=== PATIENT | male | born 1985 | race Two or more races ===

== ENCOUNTER 2017-04-28 09:28 | Emergency (ER) | payer SELFPAY ==
[2017-04-28 09:32] VITALS: BP 143/90; BMI 31.8
--- NOTE | 2017-04-28 10:19 | DR.GENAD ---
HPI - PCP Primary Care Physician: NFD - Complaint/Symptoms Chief Complaint Doctors Comments: Patient admits to RUQ pain since this morning associated with nausea. He admits to vomiting earlier today. Denies fever Chief Complaint:: SUDDEN ON SET OF SEVERE RIGHT SIDE OF ABD. PAIN - Source History Provided: Patient - Mode of Arrival Mode of Arrival: Ambulatory - Timing Onset of Chief Complaint: 04/28/17 PMH - PMH Past Medical History: No Past Surgical History: Yes Past Surgical History Comment: WISDOM TEETH - Family History History of Family Medical Conditions: No - Social History Does patient currently use any type of tobacco product: No Have you used tobacco products in the last 12 months: No Type of Tobacco Use: None Does any household member use tobacco: No Alcohol Use: None Do you use any recreational Drugs:: No Lives With: Family Lives Where: Home - infectious screening In the last 2 months have you had wt loss of >10#?: NO Have you had fever, night sweats or hemotysis?: No Have you traveled outside the country in the last 6 months?: No Isolation: Standard ROS - Review of Systems Constitutional: negative: Diaphoresis Eyes: No Symptoms Reported ENTM: No Symptoms Reported Respiratoy: No Symptoms Reported Cardiovascular: No Symptoms Reported Gastrointestinal/Abdominal: No Symptoms Reported Genitourinary: No Symptoms Reported Neurological: No Symptoms Reported, Emotional Problems Musculoskeletal: No Symptoms Reported Integumentary: No Symptoms Reported Hematologic/Lymphatic: No Symptoms Reported Endocrine: No Symptoms Reported Psychiatric: No Symptoms Reported All Other Systems: Reviewed and Negative PE - Vital Signs Vitals: Temperature 97.9 F Pulse Rate 110 Respiratory Rate 20 Blood Pressure 143/90 O2 Sat by Pulse Oximetry 97 - General General Appearance: Alert - Head Head Exam: Normal Inspection, Atraumatic - Eyes Eye exam: Normal Appearance - ENT ENT Exam: Normal Exam External Ear Exam: Normal External Inspection TM/Canal Exam: Bilateral Normal Nose Exam: Normal Nose Exam Mouth Exam: Normal Inspection Throat Exam: Normal Inspection - Neck Neck Exam: Normal Inspection, Full ROM - Chest Chest Inspection: Normal Inspection, Symmetric Chest Wall Rise - Respiratory Respiratory Exam: Normal Lung Sounds Bilat Respiratory Exam: Bilateral Clear to Auscultation - Cardiovascular Cardiovascular Exam: Regular Rate, Normal Rhythm - Abdominal Exam Abdominal Exam: Normal Inspection, Distention, Tenderness, Guarding Abdominal Tenderness: RUQ, RLQ - Extremities Extremities Exam: Normal Inspection, Full ROM - Back Back Exam: Normal Inspection, Full ROM - Neurologic Neurological Exam: Alert, Oriented X3, CN II-XII Intact - Psychiatric Psychiatric Exam: Normal Affect - Skin Skin Exam: Warm, Dry Course - Reevaluation 1st: Improved ROR - Labs Reviewed Result Diagrams: 04/28/17 10:25 04/28/17 10:25 Laboratory: WBC 11.0 X10^3/uL (3.6-10.0) H 04/28/17 10:25 RBC 5.60 X10^6/uL (4.7-6.0) 04/28/17 10:25 Hgb 16.4 g/dL (13.5-18.0) 04/28/17 10:25 Hct 46.2 % (42.0-54.0) 04/28/17 10:25 MCV 82.6 fL (80.0-100.0) 04/28/17 10:25 MCH 29.3 pg (27.0-34.0) 04/28/17 10:25 MCHC 35.5 g/dL (33.0-35.0) H 04/28/17 10:25 RDW 13.0 % (11.6-16.5) 04/28/17 10:25 Plt Count 221 X10^3/uL (150.0-450.0) 04/28/17 10:25 MPV 8.9 fL (7.4-11.0) 04/28/17 10:25 Neut % 72.4 % (42.0-75.0) 04/28/17 10:25 Lymph % 17.1 % (21.0-51.0) L 04/28/17 10:25 [place] % 5.9 % (0.0-13.0) 04/28/17 10:25 Eos % 4.1 % (0.9-2.9) H 04/28/17 10:25 Baso % 0.5 % (0.2-1.0) 04/28/17 10:25 Neut # 8.0 x10^3/uL (2.2-4.8) H 04/28/17 10:25 Lymph # 1.9 X10^3/uL (1.3-2.9) 04/28/17 10:25 [place] # 0.6 x10^3/uL (0.3-0.8) 04/28/17 10:25 Eos # 0.4 x10^3/uL (0.0-0.2) H 04/28/17 10:25 Baso # 0.1 X10^3/uL (0.0-0.1) 04/28/17 10:25 Absolute Nucleated RBC 0.1 /100WBC 04/28/17 10:25 Sodium 142 mmol/L (136-145) 04/28/17 10:25 Corrected Sodium 143 mmol/L (136-145) 04/28/17 10:25 Potassium 3.4 mmol/L (3.5-5.1) L 04/28/17 10:25 Chloride 107 mmol/L (98-107) 04/28/17 10:25 Carbon Dioxide 24.7 mmol/L (21-32) 04/28/17 10:25 BUN 13 mg/dL (7-18) 04/28/17 10:25 Creatinine 0.93 mg/dL (0.70-1.30) 04/28/17 10:25 Est GFR (MDRD) Af Amer > 60 (>60) 04/28/17 10:25 Est GFR (MDRD) Non-Af > 60 (>60) 04/28/17 10:25 Glucose 136 mg/dL (65-99) H 04/28/17 10:25 Calcium 8.8 mg/dL (8.5-10.1) 04/28/17 10:25 Corrected Calcium TNP 04/28/17 10:25 Total Bilirubin 0.60 mg/dL (0.2-1.0) 04/28/17 10:25 AST 31 Units/L (15-37) 04/28/17 10:25 ALT 58 Units/L (12-78) 04/28/17 10:25 Alkaline Phosphatase 93 Units/L (46-116) 04/28/17 10:25 C-Reactive Protein 3.90 mg/L (0-3.0) H 04/28/17 10:25 Total Protein 7.4 g/dL (6.4-8.2) 04/28/17 10:25 Albumin 4.0 g/dL (3.4-5.0) 04/28/17 10:25 Globulin 3.4 g/dL (2.5-4.5) 04/28/17 10:25 Albumin/Globulin Ratio 1.2 Ratio (1.1-2.1) 04/28/17 10:25 Specimen Type Clean catch urine 04/28/17 09:52 Urine Color Yellow (YELLOW) 04/28/17 09:52 Urine Appearance Hazy (CLEAR) 04/28/17 09:52 Urine pH 5.0 (5.0 - 8.0) 04/28/17 09:52 Ur Specific [place] 1.025 (1.000-1.030) 04/28/17 09:52 Urine Protein 2+ (NEGATIVE) 04/28/17 09:52 Urine Glucose (UA) Negative (NEGATIVE) 04/28/17 09:52 Urine Ketones Negative (NEGATIVE) 04/28/17 09:52 Urine Occult Blood 5+ (NEGATIVE) 04/28/17 09:52 Urine Nitrite Negative (NEGATIVE) 04/28/17 09:52 Urine Bilirubin Negative (NEGATIVE) 04/28/17 09:52 Urine Urobilinogen Normal (NORMAL) 04/28/17 09:52 Ur Leukocyte Esterase 1+ (NEGATIVE) 04/28/17 09:52 Urine RBC 20-25 /HPF (NEGATIVE) 04/28/17 09:52 Urine WBC 0-2 /HPF (NEGATIVE) 04/28/17 09:52 Ur Squamous Epith Cells Rare /HPF (NEGATIVE) 04/28/17 09:52 Urine Bacteria Trace /HPF (NEGATIVE) 04/28/17 09:52 Ur Culture Indicated? No/not indicated 04/28/17 09:52 - XRAY XRAY Interpreted by: Radiologist (The patricia bases are clear. The liver is mildly enlarged but without focal space-occupying disease to the limitations of an unenhanced examination. There is decreased attenuation in the hepatic parenchyma suggestive of fatty infiltration. The spleen, adrenal glands and pancreas are within normal limits. The kidneys are unobstructed and without stones. No ureteral calculi are identified. The appendix is normal No significant intraperitoneal or retroperitoneal lymphadenopathy is identified. There are no findings suggestive of diverticulitis or colitis. Examination of the pelvis demonstrated no evidence for pelvic masses, pelvic fluid, or pelvic lymphadenopathy. No bladder abnormality is identified. No lytic or blastic skeletal lesions are identified.) - Diagnosis Discharge Problem: Hepatomegaly, hepatomegaly with fatty infiltration - Discharge Plan Condition: Stable - Follow ups/Referrals Follow ups/Referrals: NFD,None [Primary Care Provider] - 3 days - Instructions
[2017-04-28] MEDS ORDERED: TORADOL 30 MG VIAL IVP ONE (10:24)
[2017-04-28] MEDS ORDERED: ZOFRAN INJ 4 MG VIAL IVP ONE (10:26)
[2017-04-28] MEDS ORDERED: ZOFRAN INJ 4 MG VIAL ONE (10:30)
[2017-04-28] MEDS ORDERED: TORADOL 30 MG VIAL ONE (10:30)
[2017-04-28 10:31] LABS: BILIRUBIN,URINE NEGATIVE (NEGATIVE); BLOOD/HEMOGLOBIN,URINE 5+ (NEGATIVE); GLUCOSE, URINE NEGATIVE (NEGATIVE); KETONES,URINE NEGATIVE (NEGATIVE); LEUKOCYTE ESTERASE ,URINE 1+ (NEGATIVE); NITRITES,URINE NEGATIVE (NEGATIVE); PROTEIN,URINE 2+ (NEGATIVE); UROBILINOGEN,URINE NORMAL (NORMAL)
[2017-04-28 10:38] LABS: COLOR,URINE YELLOW (YELLOW)
[2017-04-28 10:39] LABS: APPEARANCE,URINE HAZY (CLEAR); BACTERIA,URINE TRACE /HPF (NEGATIVE); RBC,URINE 20-25 /HPF (NEGATIVE); SQUAMOUS EPITHELIAL CELL,UR RARE /HPF (NEGATIVE)
[2017-04-28 10:45] LABS: ALANINE AMINOTRANSFERASE 58 Units/L (12-78); ALKALINE PHOSPHATASE 93 Units/L (46-116); ASPARTATE AMINO TRANSFERASE 31 Units/L (15-37); BLOOD UREA NITROGEN 13 mg/dL (7-18); CALCIUM 8.8 mg/dL (8.5-10.1); CARBON DIOXIDE 24.7 mmol/L (21-32); CHLORIDE 107 mmol/L (98-107); COR NA(FOR HYPERGLY) 143 mmol/L (136-145); CREATININE 0.93 mg/dL (0.70-1.30); GLUCOSE 136 mg/dL (65-99); SODIUM 142 mmol/L (136-145); TOTAL PROTEIN 7.4 g/dL (6.4-8.2); eGFR BLACK RACES > 60 (>60); eGFR NON BLACK RACES > 60 (>60)
--- NOTE | 2017-04-28 10:57 | US ---
HISTORY: Sudden onset right upper quadrant pain Study: Right upper quadrant ultra sound Comparison: None Findings: The liver is normal in size and configuration and without cysts masses or biliary ductal dilatation. The echogenicity of the hepatic parenchyma is increased suggestive of fatty infiltration. No gallst ones are present within the gallbladder. Gallbladder wall thickness was normal. The common duct panda ured 3.2 millimeters. The pancreas was not well visualized. The right kidney was unobstructed and wi thout stones, masses, or perinephric fluid collections. IMPRESSION: No evidence for cholelithiasis or cholecystitis Mild fatty infiltration of the liver Reported By:
[2017-04-28 11:03] LABS: BASOPHILS # (AUTO) 0.1 X10^3/uL (0.0-0.1); BASOPHILS % (AUTO) 0.5 % (0.2-1.0); EOSINOPHILS # (AUTO) 0.4 x10^3/uL (0.0-0.2); EOSINOPHILS % (AUTO) 4.1 % (0.9-2.9); HEMATOCRIT 46.2 % (42.0-54.0); HEMOGLOBIN 16.4 g/dL (13.5-18.0); LYMPHOCYTES # (AUTO) 1.9 X10^3/uL (1.3-2.9); LYMPHOCYTES % (AUTO) 17.1 % (21.0-51.0); MEAN CORPUSCULAR HEMOGLOBIN 29.3 pg (27.0-34.0); MEAN CORPUSCULAR HGB CONC 35.5 g/dL (33.0-35.0); MEAN CORPUSCULAR VOLUME 82.6 fL (80.0-100.0); MEAN PLATELET VOLUME 8.9 fL (7.4-11.0); MONOCYTES # (AUTO) 0.6 x10^3/uL (0.3-0.8); MONOCYTES % (AUTO) 5.9 % (0.0-13.0); NEUTROPHILS % (AUTO) 72.4 % (42.0-75.0); PLATELET COUNT 221 X10^3/uL (150.0-450.0)
--- NOTE | 2017-04-28 11:58 | CT ---
HISTORY: Right upper quadrant pain, hematuria Study: CT abdomen pelvis without contrast Comparison: None Technique: Axial non contrast images with coronal and sagittal reformats. Findings: The lung bases are clear. The liver is mildly enlarged but without focal space-occupying disease to the limitations of an unenhanced examination. There is decreased attenuation in the hepatic parenchy ma suggestive of fatty infiltration. The spleen, adrenal glands, and pancreas are within normal limi ts. The kidneys are unobstructed and without stones. No ureteral calculi are identified. The appendi x is normal. No significant intraperitoneal or retroperitoneal lymphadenopathy is identified. There are no findings suggestive of diverticulitis or colitis. Examination of the pelvis demonstrated no e vidence for pelvic masses, pelvic fluid, or pelvic lymphadenopathy. No bladder abnormality is identi fied. No lytic or blastic skeletal lesions are identified. IMPRESSION: Hepatomegaly with diffuse fatty infiltration No evidence for obstructing renal or ureteral calculi Normal appendix Reported By:
== END 2017-04-28 12:30 | disposition home or self-care (01) ==
LOC: ER 09:39
DX: R16.0 Hepatomegaly, not elsewhere classified (principal); K76.0 Fatty (change of) liver, not elsewhere classified; R10.11 Right upper quadrant pain
CPT/HCPCS: 36415; 74176; 76705; 80053; 81001; 85025; 86140; 96365; 96374; 96375; 99283; A4222; J1885; J2405